=== PATIENT | male | born 1945 | race Caucasian/White ===

== ENCOUNTER → 2016-07-21 | Outpatient (CLI) | payer OTHER | LOC: MMPC 09:00 | PROVIDERS: ATTEND Nurse Practitioner Family | DX: H93.12 Tinnitus, left ear (principal); J30.9 Allergic rhinitis, unspecified; H83.3X2 Noise effects on left inner ear | CPT/HCPCS: 99213; G0463 ==

== ENCOUNTER 2016-10-10 14:40 | Emergency (ER) | payer OTHER ==
[2016-10-10] MEDS ORDERED: MECLIZINE 25 MG CHEWABLE TABLET PO ONE (14:59)
[2016-10-10] MEDS ORDERED: NORMAL SALINE 10 ML SYRINGE FLUSH IVP PRN (14:59)
--- NOTE | 2016-10-10 15:01 | EKG ---
[address] [address] Measurements Intervals [place] Rate: 70 P: 55 VA: 170 QRS: 79 QRSD: 114 T: 47 QT: 431 QTc: 452 Interpretive Statements SINUS RHYTHM WITH FREQUENT SUPRAVENTRICULAR PREMATURE COMPLEXES MODERATE INTRAVENTRICULAR CONDUCTION DELAY [110+ ms QRS DURATION] ABNORMAL RHYTHM ECG No previous ECG available for comparison Electronically Signed On 10-11-16 10:12:05 MDT by Ayden Resendiz MD [email or web address]
[2016-10-10 15:05] LABS: BASOPHILS # (AUTO) 0.09 10*3/UL; BASOPHILS % (AUTO) 0.9 % (0-1); EOSINOPHILS # (AUTO) 0.71 10*3/UL; EOSINOPHILS % (AUTO) 6.7 % (0-8); HEMATOCRIT 49.6 % (42.0-52.0); HEMOGLOBIN 17.1 g/dL (14.0-18.0); LYMPHOCYTES # (AUTO) 3.94 10*3/uL; MEAN CORPUSCULAR HEMOGLOBIN 29.2 PG (27-31); MEAN CORPUSCULAR HGB CONC 34.5 g/dL (33-37); MEAN CORPUSCULAR VOLUME 84.8 FL (80-90); MEAN PLATELET VOLUME 10.1 FL (7.4-12.2); MONOCYTES # (AUTO) 1.46 10*3/UL (0.3-0.8); MONOCYTES % (AUTO) 13.9 % (5-15); NEUTROPHILS % (AUTO) 40.8 % (50-80); RED BLOOD COUNT 5.85 10^6/uL (4.70-6.10)
[2016-10-10 15:06] LABS: PLATELET MORPHOLOGY COMMENT NORMAL MORPHOLOGY (NORM); RBC MORPHOLOGY COMMENT NORMAL MORPHOLOGY (NORM)
[2016-10-10 15:07] LABS: WBC MORPHOLOGY COMMENT NORMAL MORPHOLOGY (NORM)
--- NOTE | 2016-10-10 15:08 | PDOC ---
Dizziness HPI - General Chief Complaint: Syncope / Near-Syncope Stated Complaint: dizziness Date Seen by Provider: 10/10/16 Time Seen by Provider: 14:55 Source: POSITIVE: Patient Exam Limitations: POSITIVE: No limitations Nurse's Notes Reviewed & Considered: Yes - History of Present Illness Initial Comments: The patient is a 71-year-old male who presents to the emergency department with dizziness. He states that just prior to arrival in the emergency room he was sitting down to eat dinner and took a drink. Shortly afterward he states he became very dizzy. He states he felt like he was drunk even though he was not. He states he had a difficult time walking secondary to the unsteadiness. Currently lying down he states that he feels better. He denies any associated headache, chest pain, shortness of breath, change in vision, numbness or weakness in his arms or legs, change in speech or any other associated symptoms. He does report that he has been having some trouble recently with his left ear. He reports diminished hearing and went to see the ENT doctor a couple of weeks ago. He was told that he did have some fluid in the inner ear and was prescribed an allergy medication. He also does have a history of hypertension and hyperlipidemia. He denies any history of heart disease. - Patient Home Medications Home Medications: Home Medications Heartburn Relief 75 150 mg ORAL BID tab 05/10/11 Lo-Dose Aspirin Ec 81 mg ORAL QD tab 05/10/11 Cetirizine HCl/Pseudoephedrine [Zyrtec-D Tablet] 1 tab ORAL BID tab 07/31/12 Lisinopril 1 tab PO DAILY #90 tab 03/23/16 Metoprolol Tartrate 1 tab PO BID #180 tab 03/23/16 Simvastatin 1 tab PO DAILY #90 tab 06/21/16 Fluticasone Propionate [Flonase Allergy Relief] 1 spr SAMANTHA BID #1 spr 07/21/16 Montelukast Sodium [Singulair] 1 tab PO DAILY #30 tab 07/21/16 Meclizine HCl 25 mg PO Q6H PRN #20 tablet 10/10/16 Multivitamin [Men's Multi-Vitamin] 1 each PO DAILY 10/10/16 - Patient Allergies Allergies/Adverse Reactions: Allergies Allergy/AdvReac Type Severity Reaction Status Date / Time No Known Drug Allergies Allergy NOT Verified 10/10/16 14:51 APPLICABLE Past Medical History - heen HEENT History: Other (please comment) Additional HEENT History: FULL UPPER AND LOWER DENTURES Cardiovascular History: Hypertension, Hyperlipidemia Respiratory History: Other (please comment) Additional Respiratory History: ALLERGIES Gastrointestinal History: GERD Genitourinary History: Denies History Endocrine History: Denies History Musculoskeletal History: Denies History Prosthesis or Implant: Yes (FULL UPPER AND LOWER DENTURES) Neurological History: Denies History Blood Disorders: Denies History Psychiatric History: Denies History History of Sexually Transmitted Diseases: No Male Reproductive History: Denies History Cancer History: Denies History In Past Year Been Physically Harmed or Verbally Threatened: No (PER PATIENT) History of MDRO: No History of Other Communicable Diseases: No Tobacco Use: Never Smoker Alcohol Use: Other How much alcohol do you normally drink a day?: 1-2 DRINKS DAILY Substance Use Type: None Previous Surgical History: No Significant Family History: No pertinent family hx Past Medical History Reviewed: Reviewed - No Changes ROS - Limitations ROS Limitations: No Limitations Constitution: DENIES: Chills, Fever Cardiovascular: DENIES: Chest Pain, Heart Racing, Heart Palpitations, Edema Respiratory: REPORTS: Denies Resp Symptoms. DENIES: Shortness Of Breath Neurological: REPORTS: Dizziness, Difficulty Walking. DENIES: Confusion, Headache, Numbness, Fainting, Seizure Activity, Facial Asymmetry, Weakness Gastrointestinal: REPORTS: Denies GI Symptoms. DENIES: Nausea Endocrine: REPORTS: Denies Symptoms Musculoskeletal: REPORTS: Denies MS Symptoms Eyes: REPORTS: Denies Symptoms. DENIES: Vision Changes ENT: REPORTS: Hearing Loss (Left ear recently), Congestion Skin: DENIES: Rash Dizziness PE - General Appearance General Appearance: POSITIVE: No Acute Distress - HEENT HEENT: POSITIVE: Head Inspection Nml, Eyes Inspection Nml, Nose Inspection Nml, Pharynx Inspect. Nml, PERRL, EOMI, Other (TM on the right is normal, TM on the left is also clear however he does have clear fluid noted in the inner year) - Neck Neck: POSITIVE: Supple. NEGATIVE: Carotid Bruit - Respiratory Respiratory: POSITIVE: No Respiratory Distress, Breath Sounds Normal - Cardiovascular Cardiovascular: POSITIVE: Regular Rate & Rhythm, No Murmur Peripheral Pulses: Radial (R): 2+, Radial (L): 2+ - Abdomen Abdomen: Soft: (All Quadrants), Denies Tenderness: (All Quadrants), No Distention: (All Quadrants) - Skin Skin: POSITIVE: Intact, No Rash - Extremities Extremity: Normal ROM: (All Extremities), Normal Inspection: (All Extremities) - Neuro/Psych Neuro/Psych: POSITIVE: Alert, Affect Appropriate, Mood Appropriate, Normal Speech, Normal Cognition Cranial Nerves: POSITIVE: Normal As Tested Sensorimotor: POSITIVE: No Motor Deficits, No Sensory Deficits Dizziness Progress - Results Reviewed by me Lab Results Reviewed: Yes Lab Results:: Laboratory Results 10/10/16 Range/Units 14:45 WBC 10.53 (4.8-10.8) 10^3/uL RBC 5.85 (4.70-6.10) 10^6/uL Hgb 17.1 (14.0-18.0) g/dL Hct 49.6 (42.0-52.0) % MCV 84.8 (80-90) FL MCH 29.2 (27-31) PG MCHC 34.5 (33-37) g/dL RDW Std Deviation 40.3 (39-50) fL RDW Coeff of Cheri 13.1 (11.5-14.5) % Plt Count 291 (140-350) 10*3/uL MPV 10.1 (7.4-12.2) FL Immature Gran % (Auto) 0.3 (0-5) % Neut % (Auto) 40.8 L (50-80) % Lymph % (Auto) 37.4 (10-50) % [place] % (Auto) 13.9 (5-15) % Eos % (Auto) 6.7 (0-8) % Baso % (Auto) 0.9 (0-1) % Immature Gran # (Auto) 0.03 10*3/UL Neut # (Auto) 4.30 10*3/UL Lymph # (Auto) 3.94 10*3/uL [place] # (Auto) 1.46 H (0.3-0.8) 10*3/UL Eos # (Auto) 0.71 10*3/UL Baso # (Auto) 0.09 10*3/UL WBC Morphology Comment Normal morphology (NORM) Plt Morphology Comment Normal morphology (NORM) RBC Morph Comment Normal morphology (NORM) Sodium 137 (135-145) meq/L Potassium 4.2 (3.8-5.2) meq/L Chloride 100 (98-112) meq/L Carbon Dioxide 25 (23-33) meq/L Anion Gap 12 (5-20) BUN 13 (7-22) mg/dL Creatinine 0.8 (0.70-1.50) mg/dL Estimated GFR (>60 ml/min/1.73m(2)) BUN/Creatinine Ratio 16.25 (6-20) Glucose 106 (78-110) mg/dL Calculated Osmolality 283.0 (267-292) mOsm/kg Calcium 9.5 (8.7-10.7) mg/dL Magnesium 2.1 (1.6-2.4) mg/dL Total Bilirubin 0.9 (0.3-1.2) mg/dL AST 41 (21-57) IU/L ALT 52 (21-72) IU/L Alkaline Phosphatase 59 (38-126) IU/L Troponin I < 0.012 (< 0.040) ng/mL C-Reactive Protein < 0.5 (0.0-0.9) mg/dL Total Protein 7.5 (6.1-8.0) g/dL Albumin 4.3 (3.5-4.8) g/dL Globulin 3.1 (2.50-4.10) g/dL Albumin/Globulin Ratio 1.30 (1.3-2.0) mg/g Serum Alcohol < 10 (0-10) mg/dL EKG Interpreted/Reviewed By Me:: Yes EKG Interpretation:: POSITIVE: Normal Sinus Rhythm, Normal Rate, Normal Intervals, Normal QRS, Normal ST/T, Other (Occasional PAC, no acute ST segment or T-wave changes) - Patient's Progress MDM / ED Course: The patient's clinical presentation is consistent with vertigo likely caused by in her ear disturbance. His EKG shows normal sinus rhythm with occasional PACs and no other acute changes. He was given meclizine 25 mg by mouth and blood work was obtained for analysis. His blood pressure had been slightly elevated on arrival and actually came down into the 90s to 100s systolic here. Orthostatic vitals were checked and his pressure actually jeffery with standing. He had no further dizziness here. His lab work is all essentially normal. At this point it seems most likely that his dizziness/vertigo type symptoms are related to his in her ear. He does have evidence of clear fluid in the middle ear on the left. He is advised to continue Flonase and antihistamines as recommended per ENT. In addition he was advised to try Mucinex and was prescribed meclizine as needed for dizziness. He will return to the emergency room if any worsening or change in symptoms. He is advised follow-up with primary care in 5-7 days. - Consult Counseled: POSITIVE: Patient, Family, RE: Lab Results, RE: DX, RE: Need for F/U Patient Care Time - Estimated PCT Patient Care Time (In Minutes): 30 Vital Signs - Recent Vital Signs Vital Signs: Vital Signs (Last 8 hours) Temp Pulse Pulse Pulse Pulse Pulse Resp 10/10/16 16:00 61 63 67 10/10/16 14:49 70 10/10/16 14:40 95.6 F L 70 17 BP BP BP BP Pulse Ox 10/10/16 16:00 91/57 110/71 109/58 10/10/16 14:49 10/10/16 14:40 167/88 93 - VS Reviewed Vital Signs Reviewed: Yes Discharge Clinical Impression: Vertigo, Labyrinthitis Condition: Stable Prescriptions / Orders: Meclizine HCl 25 mg PO Q6H PRN #20 tablet PRN Reason: Dizziness Patient Instructions Given at Discharge: Labyrinthitis (ED), Dizziness (ED) Additional Instructions: The dizziness that you are experiencing is thought to be related to your in her ear and possibly related to the fluid that you have in your left ear. Continue Flonase nasal spray. Continue allergy medication as previously prescribed. You have also been prescribed meclizine 25 mg every 6 hours as needed for dizziness. Also you might try Mucinex which is an [id number] decongestant. Return to the emergency room if any worsening or change in symptoms. Recommend follow-up with primary care in 5-7 days. Follow Up With: KESHIA EBRGER [Primary Care Provider] -
[2016-10-10 15:14] LABS: BLOOD UREA NITROGEN 13 mg/dL (7-22); BUN/CREATININE RATIO 16.25 (6-20); CALCIUM 9.5 mg/dL (8.7-10.7); MAGNESIUM 2.1 mg/dL (1.6-2.4); SERUM ALBUMIN 4.3 g/dL (3.5-4.8)
[2016-10-10 15:15] LABS: C-REACTIVE PROTEIN < 0.5 mg/dL (0.0-0.9)
[2016-10-10 15:16] VITALS: RESP 17; TEMP 95.6
== END 2016-10-10 16:19 | disposition home or self-care (01) ==
LOC: ER 14:40
DX: R42 Dizziness and giddiness (principal); H83.02 Labyrinthitis, left ear; E78.5 Hyperlipidemia, unspecified; I10 Essential (primary) hypertension
CPT/HCPCS: 80053; 80320; 83735; 84484; 85025; 86140; 93005; 93010; 99283